=== PATIENT | male | born 1960 | race Hispanic/Latino ===

== ENCOUNTER 2020-12-05 13:46 | Emergency (ER) | payer OTHER, MEDICAID, SELFPAY ==
[2020-12-05 14:05] VITALS: BP 103/68; PULSE 77; RESP 16; TEMP 36.9; O2SAT 97
--- NOTE | 2020-12-05 14:39 | ED_ITS ---
HPI - Nausea/Vomiting/Diarrhea General Chief complaint: Nausea/Vomiting/Diarrhea Stated complaint: n/v/d since last night Time Seen by Provider: 12/05/20 14:19 History of Present Illness HPI Narrative: Patient is a 60-year-old male Russian-speaking language line is used a presenting with nausea vomiting abdominal pain and diarrhea ongoing since yesterday. He is here with another family member with similar symptoms. Unsure exactly what they ate. No not blood. He is having diffuse abdominal pain. He denies any dizziness or lightheadedness. No fever or chills. He has not had any hematemesis or bloody stool. Related Data Previous Rx's Medication Instructions Recorded ondansetron 4 mg disintegrating 4 mg PO Q8H PRN #10 tab 12/05/20 tablet Allergies Allergy/AdvReac Type Severity Reaction Status Date / Time No Known Drug Allergies Allergy Verified 12/05/20 14:53 Review of Systems Review of Systems Narrative: GENERAL: Denies chills, fatigue, malaise, fever, sweats, travel HEENT: Denies sinus pain, ear pain, sore throat, difficulty swallowing, neck pain RESPIRATORY: Denies dyspnea, cough, wheezing, hemoptysis, sputum. CARDIOVASCULAR: Denies chest pain, palpitations, orthopnea, edema GASTROINTESTINAL: See HPI : Denies dysuria, frequency, incontinence, hematuria, urinary retention, flank pain. MUSCULOSKELETAL: Denies weakness, joint pain, or bony pain SKIN: No rash, no erythema, no pruritus NEUROLOGIC: Denies weakness, dizziness, headache, numbness, change in speech, confusion PSYCHIATRIC: No concerning psychosocial issues. 12 point review of systems is negative except for those stated above and HPI Exam Initial Vital Signs Initial Vital Signs: Vital Signs Temperature 98.4 F 12/05/20 14:05 Pulse Rate 77 12/05/20 14:05 Respiratory Rate 16 12/05/20 14:05 Blood Pressure 103/68 12/05/20 14:05 Pulse Oximetry 97 12/05/20 14:05 GENERAL: Alert pleasant 60-year-old male and in no acute distress. HEENT: Head atraumatic,EOMI, pupils reactive, face symmetric, moist mucous membranes CARDIOVASCULAR: Regular rate and rhythm without murmurs, rubs or gallops. RESPIRATORY: Breath sounds equal bilaterally, no wheezes rales or rhonchi. ABDOMEN: Soft, nontender. Normoactive bowel sounds all 4 quadrants. No guarding or rebound. EXTREMITIES: Normal range of motion, no clubbing or edema. Neurovascularly intact NEUROLOGICAL: Alert and oriented x4.Normal gait and speech. SKIN: Warm, dry, no laceration, no petechiae, no rashes or lesions. Course Orders Ordered: ED Orders 12/05/20 14:50 Complete Blood Count AUTO DIFF Stat Comprehensive Metabolic Panel Stat Lipase Stat Discontinued Medications Sodium Chloride (Normal Saline 0.9%) 1,000 mls @ 1,000 mls/hr IV CONT EDILSON Last Infusion: 12/05/20 16:23 Dose: 0 mls/hr Documented by: Admin: 12/05/20 14:54 Dose: 1,000 mls/hr Documented by: BENITO Ketorolac Tromethamine (Ketorolac 30 Mg/Ml Vial) 30 mg IV NOW ONE Stop: 12/05/20 14:40 Last Admin: 12/05/20 14:54 Dose: 30 mg Documented by: BENITO Ondansetron HCl (Ondansetron 4 Mg/2 Ml Inj) 4 mg IV NOW ONE Stop: 12/05/20 14:40 Last Admin: 12/05/20 14:54 Dose: 4 mg Documented by: BENITO Vital Signs Vital signs: Vital Signs - 8 hr 12/05/20 14:05 12/05/20 17:15 Temperature 98.4 F Pulse Rate 77 66 Respiratory Rate 16 16 Blood Pressure 103/68 104/59 L Pulse Oximetry 97 99 MDM - Nausea/Vomiting/Diarrhea Lab Data Result diagrams: 12/05/20 14:50 12/05/20 14:50 Labs: Lab Results 12/05/20 12/05/20 Range/Units 14:50 14:50 WBC 8.1 (4.5-11.0) X10^3/uL RBC 5.42 (4.5-5.9) X10^6/uL Hgb 15.4 (13.5-17.5) g/dL Hct 44.8 (41-53) % MCV 82.8 (80-100) fL MCH 28.5 (26-34) PG MCHC 34.4 (30-36) % RDW 14.4 (11.6-14.8) % Plt Count 117 L (150-400) X10^3/uL Neut % (Auto) 84.8 H (50-75) % Lymph % (Auto) 9.4 L (25-40) % [place] % (Auto) 4.2 (3-14) % Eos % (Auto) 1.2 L (2-4) % Baso % (Auto) 0.4 (0-2) % Neut # (Auto) 6800 (8833-7311) /uL Lymph # (Auto) 800 L (0814-1811) /uL [place] # (Auto) 300 (0-900) /uL Eos # (Auto) 100 (0-450) /uL Baso # (Auto) 0 (0-100) /uL Sodium 141 (137-145) mmol/L Potassium 4.4 (3.4-5.1) mmol/L Chloride 107 (98-107) mmol/L Carbon Dioxide 27 (22-32) mmol/L BUN 22 H (9-20) mg/dL Creatinine 0.97 (0.66-1.25) mg/dL Estimated GFR > 60.0 (>60) mL/min BUN/Creatinine Ratio 22.7 H (6-22) Glucose 100 (80-110) mg/dL Calcium 9.2 (8.4-10.2) mg/dL Total Bilirubin 0.7 (0.2-1.3) mg/dL AST 44 (17-59) IU/L ALT 47 (<50) IU/L Alkaline Phosphatase 54 (38-126) U/L Total Protein 7.7 (6.3-8.2) g/dL Albumin 4.4 (3.5-5.0) g/dL Globulin 3.3 (1.7-4.1) g/dL Albumin/Globulin Ratio 1.3 (1.0-2.8) Lipase 54 (23-300) U/L Urine Dip Bedside Urine Glucose Negative Bedside Urine Bilirubin + 1 Bedside Urine Ketone - Negative Urine Specific [place] 1.030 Bedside Urine Occult Blood - Negative Bedside Urine pH 6 Bedside Urine Protein - Negative Bedside Urine Urobilinogen - Negative Bedside Urine Nitrite - Negative Bedside Urine Leukocytes - Negative Esterase MDM Narrative Medical decision making narrative: Patient's sinus symptoms are consistent with gastroenteritis. Blood work is overall reassuring. Another family member has similar symptoms. He is tolerating oral fluids and feeling better. Language line is again use to give him results discharge instructions. Discharge Plan Departure Patient Disposition: Home Clinical Impression: Gastroenteritis Instructions: DI for Viral Gastroenteritis -- Adult Activity Restrictions/Additional Instructions: *You have been diagnosed with gastroenteritis *What to do: Increase fluid intake with Gatorade or Gatorade like substance. This should improve over the next couple days *Continue to take medications as directed Zofran 4 mg every 8 hours if needed for nausea or vomiting *Follow up with your primary care provider in 2-3 days *Return to ER if you should have it dizziness lightheadedness, increasing pain or any new, worsening or concerning symptoms Prescriptions: New ondansetron 4 mg tablet,disintegrating 4 mg PO Q8H PRN (Reason: nausea and vomiting) Qty: 10 RF: 0
[2020-12-05] MEDS: KETOROLAC 30 MG/ML VIAL IV (14:54)
[2020-12-05] MEDS: ONDANSETRON 4 MG/2 ML INJ IV (14:54)
[2020-12-05] MEDS: SODIUM CHLORIDE 0.9% 1,000 ML 1000 ML IV (14:54)
[2020-12-05 14:56] LABS: Add Manual Diff / Slide Review NO; Basophils Absolute Auto 0 /uL (0-100); Basophils Percent Auto 0.4 % (0-2); Eosinophils Absolute Auto 100 /uL (0-450); Eosinophils Percent Auto 1.2 % (2-4); Hematocrit 44.8 % (41-53); Hemoglobin 15.4 g/dL (13.5-17.5); Lymphocytes Absolute Auto 800 /uL (1100-4500); Lymphocytes Percent Auto 9.4 % (25-40); Mean Corpuscular HGB Conc 34.4 % (30-36); Mean Corpuscular Hemoglobin 28.5 PG (26-34); Mean Corpuscular Volume 82.8 fL (80-100); Monocytes Absolute Auto 300 /uL (0-900); Monocytes Percent Auto 4.2 % (3-14); Neutrophils Absolute Auto 6800 /uL (1500-7000); Neutrophils Percent Auto 84.8 % (50-75); Platelet Count 117 X10^3/uL (150-400); Red Blood Cell Count 5.42 X10^6/uL (4.5-5.9); Red Cell Distribution Width 14.4 % (11.6-14.8); White Blood Cell Count 8.1 X10^3/uL (4.5-11.0)
[2020-12-05 15:11] LABS: Alanine Aminotransferase 47 IU/L (<50); Albumin 4.4 g/dL (3.5-5.0); Albumin Globulin Ratio 1.3 (1.0-2.8); Alkaline Phosphatase 54 U/L (38-126); Aspartate Aminotransferase 44 IU/L (17-59); BUN Creatinine Ratio 22.7 (6-22); Bilirubin Total 0.7 mg/dL (0.2-1.3); Blood Urea Nitrogen 22 mg/dL (9-20); Calcium 9.2 mg/dL (8.4-10.2); Carbon Dioxide 27 mmol/L (22-32); Chloride 107 mmol/L (98-107); Estimated Glomerular Filt Rate > 60.0 mL/min (>60); Globulin 3.3 g/dL (1.7-4.1); Glucose 100 mg/dL (80-110); HEMOLYSIS < 15 (0-50); Lipase 54 U/L (23-300); Potassium 4.4 mmol/L (3.4-5.1); Sodium 141 mmol/L (137-145); Total Protein 7.7 g/dL (6.3-8.2)
[2020-12-05 17:15] VITALS: BP 104/59; PULSE 66; RESP 16; O2SAT 99
== END 2020-12-05 17:23 | disposition home or self-care (01) ==
PROVIDERS: Emergency Provider Emergency Medicine
DX: K52.9 Noninfective gastroenteritis and colitis, unspecified (principal); R11.2 Nausea with vomiting, unspecified
CPT/HCPCS: 36415; 80053; 81003; 83690; 85025; 96361; 96374; 96375; 99284; J1885; J2405

== ENCOUNTER 2023-05-07 12:41 | Emergency (ER) | payer OTHER, MEDICAID, SELFPAY ==
[2023-05-07 12:55] VITALS: BP 138/71; PULSE 63; RESP 18; TEMP 36.6; O2SAT 98; BMI 25.0
[2023-05-07 13:16] LABS: Appearance Urine UA CLEAR; Bilirubin Urine UA NEGATIVE (NEGATIVE); Color Urine UA YELLOW; Glucose Urine UA NEGATIVE (Negative); Ketones Urine UA NEGATIVE (NEGATIVE); Leukocyte Esterase Urine UA NEGATIVE (NEGATIVE); Nitrite Urine UA NEGATIVE (Negative); Occult Blood Urine UA NEGATIVE (Negative); Protein Urine UA NEGATIVE (Negative); Specific Gravity Urine UA >=1.030 (1.000-1.035); Urobilinogen Urine UA 0.2 E.U./dL (0.2); pH Urine UA 5.5 (4.5-8.0)
--- NOTE | 2023-05-07 13:20 | PC.NURSE ---
Pt presented to the ED today because he has been having LLQ pain for 3 days. Pt denies any n/v and fevers and reports that he has not been around anyone sick. Pt describes pain as 8/10 and LLQ is tender to palpation. Pt has been having normal BMs and able to void normally. [employer] devonte used successfully to communicate with pt as he is mongolian-speaking.
[2023-05-07 13:30] LABS: Add Manual Diff / Slide Review NO; Basophils Absolute Auto 0 /uL (0-100); Basophils Percent Auto 0.3 % (0-2); Eosinophils Absolute Auto 300 /uL (0-450); Eosinophils Percent Auto 6.2 % (2-4); Hemoglobin 15.6 g/dL (13.5-17.5); Lymphocytes Absolute Auto 2000 /uL (1100-4500); Lymphocytes Percent Auto 41.3 % (25-40); Mean Corpuscular HGB Conc 34.7 % (30-36); Mean Corpuscular Hemoglobin 28.6 PG (26-34); Mean Corpuscular Volume 82.4 fL (80-100); Monocytes Absolute Auto 400 /uL (0-900); Monocytes Percent Auto 8.6 % (3-14); Neutrophils Absolute Auto 2100 /uL (1500-7000); Neutrophils Percent Auto 43.6 % (50-75); Platelet Count 126 X10^3/uL (150-400); Red Blood Cell Count 5.45 X10^6/uL (4.5-5.9); Red Cell Distribution Width 14.3 % (11.6-14.8); White Blood Cell Count 4.8 X10^3/uL (4.5-11.0)
[2023-05-07 13:38] LABS: Bacteria Urine None Seen; Culture Indicated Urine Cult Not Indicated; RBC Urine None Seen (0-5/HPF); Squamous Epithelial Cell Urine None Seen (0-5/HPF); WBC Urine None Seen (0-5/HPF)
[2023-05-07 13:48] LABS: Alanine Aminotransferase 60 IU/L (<50); Albumin 4.7 g/dL (3.5-5.0); Albumin Globulin Ratio 1.3 (1.0-2.8); Alkaline Phosphatase 62 U/L (38-126); Aspartate Aminotransferase 44 IU/L (17-59); BUN Creatinine Ratio 19.2 (6-22); Bilirubin Total 0.7 mg/dL (0.2-1.3); Blood Urea Nitrogen 20 mg/dL (9-20); Calcium 10.1 mg/dL (8.4-10.2); Carbon Dioxide 26 mmol/L (22-32); Chloride 106 mmol/L (98-107); Estimated Glomerular Filt Rate > 60 mL/min (>60); Globulin 3.5 g/dL (1.7-4.1); Glucose 92 mg/dL (80-110); HEMOLYSIS < 15 (0-50); Lipase 83 U/L (23-300); Potassium 4.1 mmol/L (3.4-5.1); Sodium 140 mmol/L (137-145); Total Protein 8.2 g/dL (6.3-8.2)
--- NOTE | 2023-05-07 14:12 | ED_ITS ---
HPI - Abdominal Pain General Chief Complaint: Abdominal Pain Stated Complaint: abd pain Time Seen by Provider: 05/07/23 14:12 Source: patient Mode of arrival: Ambulatory Limitations: language barrier (Tortilla Maker used) History of Present Illness HPI narrative: 62-year-old male with no reported medical issues, no prior surgeries Sami- speaking. Patient presents with complaint of abdominal pain that started on Saturday, 2 days ago. Describes it as left lower quadrant and on the lateral side of his abdomen but not in his flank. Patient denies fevers or chills. No chest pain or shortness of breath. He denies any nausea or vomiting. He states he has been a little constipated he had a bowel movement yesterday but states it was little bit hard and had to strain. No black or bloody stools. No dysuria, urgency or frequency. Patient states he is had similar pain in the past but never been seen or evaluated. He denies any daily prescriptions. Denies any prior surgeries. No known drug allergies. Denies tobacco, alcohol or illicit. Related Data Previous Rx's Medication Instructions Recorded ondansetron 4 mg disintegrating 4 mg PO Q8H PRN nausea and 12/05/20 tablet vomiting #10 tabs meloxicam 7.5 mg tablet 7.5 mg PO BID PRN pain #14 tabs 05/07/23 Allergies Allergy/AdvReac Type Severity Reaction Status Date / Time No Known Drug Allergies Allergy Verified 12/05/20 14:53 Review of Systems Review of Systems ROS Unobtainable: All systems reviewed & are unremarkable except as noted in HPI and below Patient History Social History Smoking Status: Never smoker Smoking Status: Never smoker Substance Use Type: does not use Exam Narrative Exam Narrative: GENERAL: Alert and oriented x three, well-appearing male in mild distress. HEENT: Head normocephalic, atraumatic, EOMI, pupils reactive, face symmetric, moist mucous membranes NECK: Supple, full range of motion CARDIOVASCULAR: Regular rate and rhythm without murmurs, rubs or gallops. RESPIRATORY: Breath sounds equal bilaterally, no wheezes rales or rhonchi. ABDOMEN: Soft, positive for left-sided tenderness more left lower quadrant than upper. Patient also has [id number] left lateral pain. No obvious or palpable hernia. Normoactive bowel sounds all 4 quadrants. No guarding or rebound, rigidity, no mass : No CVA tenderness EXTREMITIES: Normal range of motion, no clubbing or edema. Neurovascularly intact NEUROLOGICAL: Cranial nerves II through XII grossly intact. Moving all extremities SKIN: Warm, dry, no petechiae, no rashes or lesions. Initial Vital Signs Initial Vital Signs: Vital Signs Temperature 97.9 F 05/07/23 12:55 Pulse Rate 63 05/07/23 12:55 Respiratory Rate 18 05/07/23 12:55 Blood Pressure 138/71 05/07/23 12:55 Pulse Oximetry 98 05/07/23 12:55 Oxygen Delivery Method Room Air 05/07/23 12:55 Course Orders Ordered: Discontinued Medications Ketorolac Tromethamine (Ketorolac 30 Mg/Ml Vial) 15 mg IV NOW ONE Stop: 05/07/23 14:28 Last Admin: 05/07/23 15:04 Dose: 15 mg Documented By: TUAN Ondansetron HCl (Ondansetron 4 Mg Odt) 4 mg PO NOW PRN PRN Reason: Nausea And Vomiting Ondansetron HCl (Ondansetron 4 Mg/2 Ml Inj) 4 mg IV NOW PRN PRN Reason: Nausea And Vomiting Vital Signs Vital signs: Vital Signs - 8 hr 05/07/23 12:55 05/07/23 15:36 Temperature 97.9 F Pulse Rate 63 56 L Respiratory Rate 18 20 Blood Pressure 138/71 116/72 Pulse Oximetry 98 99 Oxygen Delivery Method Room Air Room Air MDM - Abdominal Pain Lab Data 05/07/23 13:15 05/07/23 13:15 Labs: Lab Results 05/07/23 05/07/23 Range/Units 13:00 13:15 WBC 4.8 (4.5-11.0) X10^3/uL RBC 5.45 (4.5-5.9) X10^6/uL Hgb 15.6 (13.5-17.5) g/dL Hct 45.0 (41-53) % MCV 82.4 (80-100) fL MCH 28.6 (26-34) PG MCHC 34.7 (30-36) % RDW 14.3 (11.6-14.8) % Plt Count 126 L (150-400) X10^3/uL Neut % (Auto) 43.6 L (50-75) % Lymph % (Auto) 41.3 H (25-40) % [place] % (Auto) 8.6 (3-14) % Eos % (Auto) 6.2 H (2-4) % Baso % (Auto) 0.3 (0-2) % Neut # (Auto) 2100 (9236-6122) /uL Lymph # (Auto) 2000 (9272-3133) /uL [place] # (Auto) 400 (0-900) /uL Eos # (Auto) 300 (0-450) /uL Baso # (Auto) 0 (0-100) /uL Sodium 140 (137-145) mmol/L Potassium 4.1 (3.4-5.1) mmol/L Chloride 106 (98-107) mmol/L Carbon Dioxide 26 (22-32) mmol/L BUN 20 (9-20) mg/dL Creatinine 1.04 (0.66-1.25) mg/dL Estimated GFR > 60 (>60) mL/min BUN/Creatinine Ratio 19.2 (6-22) Glucose 92 (80-110) mg/dL Calcium 10.1 (8.4-10.2) mg/dL Total Bilirubin 0.7 (0.2-1.3) mg/dL AST 44 (17-59) IU/L ALT 60 H (<50) IU/L Alkaline Phosphatase 62 (38-126) U/L Total Protein 8.2 (6.3-8.2) g/dL Albumin 4.7 (3.5-5.0) g/dL Globulin 3.5 (1.7-4.1) g/dL Albumin/Globulin Ratio 1.3 (1.0-2.8) Lipase 83 (23-300) U/L Urine Color Yellow Urine Appearance Clear Urine pH 5.5 (4.5-8.0) Ur Specific [place] >=1.030 H (1.000-1.035) Urine Protein Negative (Negative) Urine Glucose (UA) Negative (Negative) g/dL Urine Ketones Negative (NEGATIVE) Urine Occult Blood Negative (Negative) Urine Nitrate Negative (Negative) Urine Bilirubin Negative (NEGATIVE) Urine Urobilinogen 0.2 (0.2) E.U./dL Ur Leukocyte Esterase Negative (NEGATIVE) Urine RBC None seen (0-5/HPF) Urine WBC None seen (0-5/HPF) Ur Squamous Epith Cells None seen (0-5/HPF) Urine Bacteria None seen (None) Ur Culture Indicated? Cult not indicated Imaging Data CT scan - abdomen/pelvis: Radiologist's Impression: Close Abdomen/Pelvis CT (Signed) Marlene Galeano - 05/07/23 Launch?[address] [address] [address] Scan Report Signed Patient: Kenneth William MR#: [id number] : 1960 Acct:[id number] Age/Sex: 62 / M Date of Service: 05/07/23 Loc: ED Accession Number: [id number] Procedure: CT abdomen pelvis w con Ordering Provider: Meseret Kirkland D.O. PROCEDURE: CT ABDOMEN PELVIS W CON INDICATIONS: LLQ pain, ? diveriticulitis TECHNIQUE: After the administration of intravenous contrast, axial sections acquired from the lung bases to the pubic symphysis. Coronal and sagittal reformats were performed. For radiation dose reduction, the following was used: automated exposure control, adjustment of mA and/or kV according to patient size. COMPARISON: None. FINDINGS: Image quality: Excellent. Lung bases: A 6 mm pulmonary nodule is present at the left lung base (series 3/image 4). Mild dependent atelectasis is present bilaterally. No pleural effusion. Heart: No significant findings. ABDOMEN: Liver: Liver is diffusely hypodense suggesting fatty infiltration. Gallbladder: Unremarkable. Biliary ducts: Unremarkable. Pancreas: Unremarkable. Spleen: The spleen measures 12.3 cm in length. Homogeneous enhancement. Adrenal Glands: Unremarkable. Kidneys and Ureters: There are bilateral low-density pararenal cysts. There is a large low-density left cortical cyst. Stomach and Bowel: Stomach, small bowel loops, and colon are unremarkable. There are scattered sigmoid diverticula. No evidence for diverticulitis. The appendix is not visualized; however there is no discrete right lower quadrant fluid or fat stranding to suggest acute appendicitis. Peritoneum: No abnormal intraperitoneal fluid. No free air. Ventral Wall: No hernias. Abdominal Nodes: No retroperitoneal or mesenteric adenopathy by size criteria. Vessels: Aorta and inferior vena cava are normal in size. PELVIS: Pelvic Organs: Unremarkable. Bladder: Unremarkable. Pelvic Nodes: No enlarged lymph nodes. Miscellaneous: No hernias are seen. Bones: Unremarkable. IMPRESSION: 1. No acute intra-abdominal findings. Diverticulosis. No acute diverticulitis. 2. The appendix is not visualized; however there are no ancillary findings to suggest acute appendicitis. 3. Hepatic steatosis. Dictated by: Marlene Galeano M.D. on 05/07/2023 at 14:58 Approved by: Marlene Galeano M.D. on 05/07/2023 at 15:02 [facility] Narrative Medical decision making narrative: 62-year-old male with complaint of left lower quadrant pain that started 2 days ago. Patient's pain has been persistent. Has had similar symptoms in the past but never been treated. Denies fevers chills or other symptoms he is quite tender in the left side more lower than upper. Suspect possible diverticulitis. Patient's vitals are very appropriate. Normal white count, normal hemoglobin platelets are slightly low at 126 consistent with priors from 2020 when he was 89 does have some elevated lymphocytes. Normal sodium, electrolytes, creatinine is 1.04 with normal LFTs except for an ALT of 60 and lipase that is negative. UA shows no acute change. Plan for CT abdomen pelvis to evaluate for diverticulitis. CT shows spleen 2.3 cm in length homogeneous enhancement, diffusely hypodense liver suggesting fatty infiltration large left cortical cyst on the kidney. No other acute changes noted. No diverticulitis. No kidney stone noted. Discussed findings with patient via language interpreter. Did not show any acute major changes we discussed sometimes constipation can cause some discomfort so fluids and stool softener recommended. Did discuss watching for changes with a rash such as shingles. Discussed return precautions. Patient found Toradol quite helpful for his pain we will give a short course of pain medication. He does not have a primary care physician currently so gave him phone numbers for contact. Patient expresses understanding feels comfortable with plan. We did review all of his lab and imaging changes and need for follow-up. Discharge Plan Departure Patient Disposition: Home Clinical Impression: Abdominal pain, Low platelet count Instructions: DI for Abdominal Pain-Adult Activity Restrictions/Additional Instructions: Please follow-up for recheck. Options for primary care are included below. Your imaging today shows a cyst on your left kidney and some fatty change or hepatic steatosis of the liver. No clear cause was found for your pain today. I would take a stool softener to help with bowel movements this may also help with the pain. Make sure you are drinking plenty of fluids. You may take Tylenol up to a 1000 mg every 6 hours as needed for pain and/or meloxicam 1 tablet every 12 hours as needed for pain. This medication is related to ibuprofen do not take naproxen, Aleve or ibuprofen with this medication. Please return for fevers, worsening abdominal back or flank pain, persistent vomiting, lightheadedness or passing out, black or bloody stools or other new or concerning changes. Prescriptions: New meloxicam 7.5 mg tablet 7.5 mg PO BID PRN (Reason: pain) Qty: 14 0RF No Action ondansetron 4 mg tablet,disintegrating 4 mg PO Q8H PRN (Reason: nausea and vomiting) Qty: 10 0RF Referrals: Dinh Pierre MD [Physician] - Suzie Recio MD [Physician] - Stand Alone Forms: Patient Portal/API
--- NOTE | 2023-05-07 14:27 | DI.CT.S_ITS ---
PROCEDURE: CT ABDOMEN PELVIS W CON INDICATIONS: LLQ pain, ? diveriticulitis TECHNIQUE: After the administration of intravenous contrast, axial sections acquired from the lung bases to the pubic symphysis. Coronal and sagittal reformats were performed. For radiation dose reduction, the following was used: automated exposure control, adjustment of mA and/or kV according to patient size. COMPARISON: None. FINDINGS: Image quality: Excellent. Lung bases: A 6 mm pulmonary nodule is present at the left lung base (series 3/image 4). Mild dependent atelectasis is present bilaterally. No pleural effusion. Heart: No significant findings. ABDOMEN: Liver: Liver is diffusely hypodense suggesting fatty infiltration. Gallbladder: Unremarkable. Biliary ducts: Unremarkable. Pancreas: Unremarkable. Spleen: The spleen measures 12.3 cm in length. Homogeneous enhancement. Adrenal Glands: Unremarkable. Kidneys and Ureters: There are bilateral low-density pararenal cysts. There is a large low-density left cortical cyst. Stomach and Bowel: Stomach, small bowel loops, and colon are unremarkable. There are scattered sigmoid diverticula. No evidence for diverticulitis. The appendix is not visualized; however there is no discrete right lower quadrant fluid or fat stranding to suggest acute appendicitis. Peritoneum: No abnormal intraperitoneal fluid. No free air. Ventral Wall: No hernias. Abdominal Nodes: No retroperitoneal or mesenteric adenopathy by size criteria. Vessels: Aorta and inferior vena cava are normal in size. PELVIS: Pelvic Organs: Unremarkable. Bladder: Unremarkable. Pelvic Nodes: No enlarged lymph nodes. Miscellaneous: No hernias are seen. Bones: Unremarkable. IMPRESSION: 1. No acute intra-abdominal findings. Diverticulosis. No acute diverticulitis. 2. The appendix is not visualized; however there are no ancillary findings to suggest acute appendicitis. 3. Hepatic steatosis. Dictated by: Marlene Galeano M.D. on 05/07/2023 at 14:58 Approved by: Marlene Galeano M.D. on 05/07/2023 at 15:02
[2023-05-07] MEDS: KETOROLAC 30 MG/ML VIAL 15 MG IV (15:04)
[2023-05-07 15:36] VITALS: BP 116/72; PULSE 56; RESP 20; O2SAT 99
== END 2023-05-07 16:34 | disposition home or self-care (01) ==
PROVIDERS: Emergency Provider Emergency Medicine
DX: R10.32 Left lower quadrant pain (principal); D69.6 Thrombocytopenia, unspecified
CPT/HCPCS: 36415; 74177; 80053; 81001; 83690; 85025; 96374; 99284; J1885; Q9967

== ENCOUNTER 2023-05-11 09:53 | Emergency (ER) | payer OTHER, MEDICAID, SELFPAY ==
[2023-05-11 09:55] VITALS: BP 131/78; PULSE 86; RESP 15; TEMP 36.8; O2SAT 97; BMI 25.0
--- NOTE | 2023-05-11 11:10 | ED_ITS ---
HPI - Skin/Abscess/Foreign Bdy <Abhay Chavez PA-C - Last Filed: 05/11/23 11:24> General Chief complaint: Skin/Abscess/Foreign Body Stated complaint: L/SIDE PAIN Time Seen by Provider: 05/11/23 11:04 Source: patient Mode of arrival: Ambulatory Limitations: language barrier History of Present Illness HPI narrative: This is a 62-year-old male presents emergency department due to a left-sided a bdominal rash for the last couple of days. He states that it was quite painful. He reports having abdominal pain 4 days ago where he came here treatment and evaluation. Since then a rash has developed in the left side of his abdomen. Denies any fevers, nausea, vomiting, or any other concerning signs or symptoms. Related Data Previous Rx's Medication Instructions Recorded ondansetron 4 mg disintegrating 4 mg PO Q8H PRN nausea and 12/05/20 tablet vomiting #10 tabs meloxicam 7.5 mg tablet 7.5 mg PO BID PRN pain #14 tabs 05/07/23 diphenhydramine HCl 25 mg capsule 25 mg PO TID PRN itching #30 caps 05/11/23 (Benadryl) gabapentin 300 mg capsule 300 mg PO TID #30 caps 05/11/23 ibuprofen 400 mg tablet 400 mg PO Q6H PRN pain #30 tabs 05/11/23 valacyclovir 1 gram tablet 1,000 mg PO TID 7 days #21 tabs 05/11/23 Allergies Allergy/AdvReac Type Severity Reaction Status Date / Time No Known Drug Allergies Allergy Verified 05/11/23 10:06 Review of Systems <Abhay Chavez PA-C - Last Filed: 05/11/23 11:24> Review of Systems Narrative: GENERAL: Denies chills, fatigue, malaise, fever, sweats. HEENT: Denies sinus pain, ear pain, sore throat, difficulty swallowing, dizziness. RESPIRATORY: Denies dyspnea, cough, wheezing, hemoptysis, sputum. CARDIOVASCULAR: Denies chest pain, palpitations, orthopnea, edema, GASTROINTESTINAL: Denies nausea, vomiting, abdominal pain, diarrhea, constipation, melena. : Denies dysuria, frequency, incontinence, hematuria, urinary retention. MUSCULOSKELETAL: denies weakness, joint pain, or bony pain SKIN: Left-sided abdominal rash NEUROLOGIC: Denies weakness, headache, numbness, change in speech, confusion, seizures, incoordination. PSYCHIATRIC: No concerning psychosocial issues. 12 point review of systems is negative except for those stated above Patient History <Abhay Chavez PA-C - Last Filed: 05/11/23 11:24> Social History Smoking Status: Never smoker Smoking Status: Never smoker Substance Use Type: does not use Exam <Abhay Chavez PA-C - Last Filed: 05/11/23 11:24> Narrative Exam Narrative: GENERAL: Well-developed patient, in mild distress. HEAD: Atraumatic. Normocephalic. EYES: Pupils equal round and reactive. Extraocular motions intact. No scleral icterus. No injection or drainage. ENT: Nose without bleeding, purulent drainage. Throat without erythema, tonsillar hypertrophy or exudate. Airway patent. NECK: Trachea midline. Non tender CARDIOVASCULAR: Regular rate and rhythm without murmurs, gallops, or rubs. RESPIRATORY: Clear to auscultation. Breath sounds equal bilaterally. No wheezes, rales, or rhonchi. GASTROINTESTINAL: Abdomen soft, non-tender, nondistended. EXTREMITIES: No edema or joint tenderness. BACK: Nontender without deformity or crepitance. No flank tenderness. NEURO: AOx3. SKIN: Erythematous rash to the left side of the abdomen wrapping around to the left flank. Does not cross midline. Small vesicles evident. No significant drainage. Initial Vital Signs Initial Vital Signs: Vital Signs Temperature 98.3 F 05/11/23 09:55 Pulse Rate 86 05/11/23 09:55 Respiratory Rate 15 05/11/23 09:55 Blood Pressure 131/78 05/11/23 09:55 Pulse Oximetry 97 05/11/23 09:55 Oxygen Delivery Method Room Air 05/11/23 09:55 <Tasha Coffman DO - Last Filed: 05/16/23 09:57> Initial Vital Signs Initial Vital Signs: Vital Signs Temperature 98.3 F 05/11/23 09:55 Pulse Rate 86 05/11/23 09:55 Respiratory Rate 15 05/11/23 09:55 Blood Pressure 131/78 05/11/23 09:55 Pulse Oximetry 97 05/11/23 09:55 Oxygen Delivery Method Room Air 05/11/23 09:55 Course <Abhay Chavez PA-C - Last Filed: 05/11/23 11:24> Vital Signs Vital signs: Vital Signs - 8 hr 05/11/23 09:55 Temperature 98.3 F Pulse Rate 86 Respiratory Rate 15 Blood Pressure 131/78 Pulse Oximetry 97 Oxygen Delivery Method Room Air <Tasha DO Augustus - Last Filed: 05/16/23 09:57> Vital Signs Vital signs: Vital Signs - 8 hr 05/11/23 09:55 Temperature 98.3 F Pulse Rate 86 Respiratory Rate 15 Blood Pressure 131/78 Pulse Oximetry 97 Oxygen Delivery Method Room Air MDM - Skin/Abscess/Foreign Bdy <Abhay Chavez PA-C - Last Filed: 05/11/23 11:24> MDM Narrative Medical decision making narrative: MDM * differential diagnosis includes but not limited to shingles, abscess, cellulitis, MRSA * Prior records reviewed: Patient was seen here 4 days ago for left-sided abdominal pain. CT scan unremarkable. Patient's pain improved with Toradol. * My lab interpretation: None obtained * My imgaing interpretation: None obtained * Clinical Decision Rules/Scores evaluated: None * Independent discussions with: None ED Course: This is a 62-year-old male presents emergency department due to suspected shingles based on appearance of the rash. He denies any fevers or any other systemic symptoms. We will prescribed valacyclovir, gabapentin for the pain, Benadryl for the itching. Shared Decision Making: Discussed plan with the patient was comfortable with the plan. Social Considerations: None Disposition: Discharged to home Discharge Plan Departure Patient Disposition: Home Clinical Impression: Shingles Activity Restrictions/Additional Instructions: Thank you for coming to the [facility] Emergency Department today. I believe your rash is something called shingles, it was similar to chickenpox. Please take the medications as prescribed to help with the pain and help treat the rash. You may also use ibuprofen as needed for the pain. The medications were sent to [facility] in [place]. I hope you feel better soon. Please follow up with your primary care provider within a week if your symptoms continue. If you do not have a primary care provider please contact the [facility] Resource line at [phone]. They will ask some questions about your medical history and help you get set up with a provider in the community. Renato por venir chris al [facility] de [facility]. Creo que tu sarpullido es algo llamado culebrilla, era similar a la varicela. Valera los medicamentos seg?n lo recetado para ayudar con el dolor y tratar la erupci?n. Tambi?n puede usar ibuprofeno seg?n sea necesario para el dolor. Las medicinas van a estar en la farmacia de [facility] en [place]. Espero que pronto te sientas mejor. Carina un seguimiento con chanel proveedor de atenci?n primaria dentro de adilene semana si won s?ntomas contin?an. Si no tiene un proveedor de atenci?n primaria, comun?quese con la l?pan de [facility] Resource al [phone]. Le librado?n algunas preguntas sobre chanel historial m?dico y le ayudar?n a establecer adilene lisa con un proveedor de la comunidad. Prescriptions: New valacyclovir 1 gram tablet 1,000 mg PO TID 7 Days Qty: 21 0RF gabapentin 300 mg capsule 300 mg PO TID Qty: 30 0RF ibuprofen 400 mg tablet 400 mg PO Q6H PRN (Reason: pain) Qty: 30 0RF diphenhydramine HCl [Benadryl] 25 mg capsule 25 mg PO TID PRN (Reason: itching) Qty: 30 0RF No Action ondansetron 4 mg tablet,disintegrating 4 mg PO Q8H PRN (Reason: nausea and vomiting) Qty: 10 0RF meloxicam 7.5 mg tablet 7.5 mg PO BID PRN (Reason: pain) Qty: 14 0RF Stand Alone Forms: Patient Portal/API ED Sign-out <Tasha Coffman, DO - Last Filed: 12/14/23 09:57> Cosign ED Attending Cosignature Attestation: I was available for consultation.
[2023-05-11 11:45] VITALS: BP 128/78; PULSE 84; RESP 16; O2SAT 97
== END 2023-05-11 11:45 | disposition home or self-care (01) ==
PROVIDERS: Emergency Provider Physician Assistant Medical
DX: B02.9 Zoster without complications (principal)
CPT/HCPCS: 99281; 99283